=== PATIENT | male | born 1990 | race Caucasian/White ===

== ENCOUNTER 2018-09-09 11:23 | Emergency (ER) | payer OTHER ==
[~2018-09-09] VITALS: Ht 165.1 cm; Wt 99.8 kg
[~2018-09-09 11:23] MED LIST: CELEXA20 MG PO; CLARITIN10 MG PO; FLEXERIL5 MG PO; LIDEX 0.05% CRE15 GM T; MOTRIN800 MG PO; PREDNICOT20 MG PO; TORADOL10 MG PO; TRIMOX500 MG PO; VITAMIN D1000 IU PO; ZITHROMAX Z PA250 MG PO
[2018-09-09] MEDS ORDERED: ANTIBIOTIC28.4 GM T (11:49)
[2018-09-09] MEDS ORDERED: CEPHALEXIN500 M1 PO ×2 (11:49→11:50)
== END 2018-09-09 11:41 | disposition home or self-care (01) ==
LOC: ED 11:23
DX: S61.011A Laceration without foreign body of right thumb without damage to nail, initial encounter (principal); Z23 Encounter for immunization; R20.2 Paresthesia of skin; Z90.49 Acquired absence of other specified parts of digestive tract; W26.8XXA Contact with other sharp object(s), not elsewhere classified, initial encounter; Y93.89 Activity, other specified; Y92.89 Other specified places as the place of occurrence of the external cause; Y99.0 Civilian activity done for income or pay

== ENCOUNTER 2020-08-31 04:56 | Emergency (ER) | payer BC ==
[~2020-08-31 04:56] MED LIST changes: +ANTIBIOTIC28.4 GM T; +CEPHALEXIN500 M1 PO
== END 2020-08-31 05:39 | disposition home or self-care (01) ==
LOC: ED 04:56
DX: S69.91XA Unspecified injury of right wrist, hand and finger(s), initial encounter (principal); X58.XXXA Exposure to other specified factors, initial encounter; Y93.89 Activity, other specified; Y92.89 Other specified places as the place of occurrence of the external cause; Y99.0 Civilian activity done for income or pay

== ENCOUNTER 2022-09-18 03:40 | Emergency (ER) | payer BC ==
[~2022-09-18] VITALS: Ht 165.1 cm; Wt 102.5 kg
== END 2022-09-18 04:34 | disposition home or self-care (01) ==
LOC: ED 03:40
DX: M79.641 Pain in right hand (principal); Z90.89 Acquired absence of other organs; Z90.49 Acquired absence of other specified parts of digestive tract

== ENCOUNTER 2022-10-22 04:34 | Emergency (ER) | payer BC ==
[~2022-10-22] VITALS: Ht 177.8 cm; Wt 104.3 kg
== END 2022-10-22 06:30 | disposition home or self-care (01) ==
LOC: ED 04:34
DX: M79.641 Pain in right hand (principal); Z90.49 Acquired absence of other specified parts of digestive tract

== ENCOUNTER 2023-01-16 03:31 | Emergency (ER) | payer BC ==
[~2023-01-16] VITALS: Ht 172.7 cm; Wt 90.7 kg
== END 2023-01-16 04:24 | disposition home or self-care (01) ==
LOC: ED 03:31
DX: M79.641 Pain in right hand (principal); Z90.49 Acquired absence of other specified parts of digestive tract; Z98.890 Other specified postprocedural states